=== PATIENT | male | born 1995 | race Two or more races ===

== ENCOUNTER 2025-06-21 17:59 | Emergency (ER) | payer BC ==
[~2025-06-21] VITALS: Ht 172.7 cm; Wt 102.1 kg
[2025-06-21] MEDS ORDERED: METFORMIN HCL500 M3 (19:19)
[2025-06-21] MEDS ORDERED: 0.9 % SODIUM CHLORIDE 2,000 ML IV STA (19:47)
[2025-06-21] MEDS ORDERED: ONDANSETRON HCL 2 MG/ML VIAL IV STA (19:48)
[2025-06-21] MEDS ORDERED: FAMOtidine 10 MG/ML (4ML VIAL) IV PUSH STA (19:48)
[2025-06-21] MEDS ORDERED: FAMOTIDINE/PF 20 MG/2 ML VIAL ONE (19:49)
[2025-06-21] MEDS ORDERED: ONDANSETRON HCL 2 MG/ML VIAL ONE (19:49)
[2025-06-21 20:12] LABS: BASO % 0.9 % (0.1-1.2); EOS # 0.37 (0.04-0.54); EOS % 3.3 % (0.7-7.0); LYMPH # 2.51 (1.18-3.74); LYMPH % 22.5 % (19.3-53.1); MEAN PLATELET VOLUME 11.00 fl (9.4-12.4); MONO # 0.82 (0.24-0.82); MONO % 7.3 % (4.7-12.5); NEUT # 7.34 (1.56-6.13); NEUT % 65.7 % (34.0-71.1); RED CELL DISTRIBUTION WIDTH 11.3 % (11.6-14.4)
[2025-06-21 20:32] LABS: INR 1.01
[2025-06-21 20:51] LABS: URINE APPEARANCE Clear; URINE BILIRRUBIN Negative (NEGATIVE); URINE BLOOD Large; URINE COLOR Yellow; URINE LEUKOCYTE Negative; URINE NITRATE Negative; URINE UROBILINOGEN 0.2 E.U./dl
[2025-06-21 20:55] LABS: URINE BACTERIA 20.4 uL (0.0-1933); URINE EPITHELIAL CELLS 4.1 uL (0.0-38.8); URINE RBC 2302.0 uL (0.0-20.8); URINE WBC 29.8 uL (0.0-23.2)
[2025-06-21 21:01] LABS: AST/SGOT 131.0 U/L (15-37); BILIRUBIN TOTAL 0.85 mg/dL (0.3-1.2); BUN CREA RATIO 16.0 (7.0-25.0); CREATININE SERUM 1.25 mg/dL (0.70-1.30); GFR 67.37; GLOBULINA 4.4 G/DL (2.4-3.5); OSMOLALITY SERUM 287.0 MOSM/KG (275-295)
[2025-06-21 21:09] LABS: URINE CAST 0.29 uL (0.0-1.40); URINE GLUCOSE >=1000 MG/DL (NEGATIVE); URINE KETONE 40 (NEGATIVE); URINE PROTEIN 100 (NEGATIVE)
[2025-06-21 21:13] LABS: ALT/SGPT 235.0 U/L (12-78); GLUCOSE FASTING 383.0 mg/dL (65-100)
[2025-06-21 21:57] LABS: ABG PH 7.401 (7.35-7.45); ABG PO2 81.1 mmHg (80-100); BICARBONATE 24.6 mmol/l (23-25)
[2025-06-21] MEDS ORDERED: 0.9 % SODIUM CHLORIDE 1,000 ML IV SCH (22:45)
[2025-06-21] MEDS ORDERED: INSULIN REGULAR, HUMAN 1,000 UNIT/10 ML UNITS SUBCUTANEO STA (22:55)
[2025-06-21 23:15] LABS: o2 21 %
== END 2025-06-22 00:44 | disposition home or self-care (01) ==
LOC: ER 17:59
DX: E11.65 Type 2 diabetes mellitus with hyperglycemia (principal); Z79.84 Long term (current) use of oral hypoglycemic drugs; Z88.0 Allergy status to penicillin